=== PATIENT | female | born 1990 | race Caucasian/White ===

== ENCOUNTER → 2016-10-08 | Outpatient (CLI) | payer OTHER ==
[~2016-10-08] MED LIST: /PANT40TA OR; ACET65TA; AMBI10TA PO; BACT800T; CARB20TAXR PO; CIPR500T19 OR; CLON0.5T PO; COLA100C PO; COLA100C2 OR; DEPO SHOT; ESCI10TA2 PO; FERROUS SULFATE PO; FLAG500T OR; GEOD60CA PO; HYDROXYZINE PO; IBUP600T OR; KLON0.5T PO; KLON1TAB PO; MIRT45TA OR; MOTR200T4; NYST100024 TOP; PERC5TAB8 OR; PERC7.5T8 OR; SENO8.6T5 OR; SERO50TA PO; XANA0.5T PO; ZOLO100T OR; vitamin B12 SQ
[2016-10-08 16:38] LABS: MEAN CORPUSCULAR HEMOGLOBIN 20.7 pg (27.0-33.0); MEAN CORPUSCULAR HGB CONC 28.7 g/dl (32.0-36.5); MEAN CORPUSCULAR VOLUME 72.1 fl (80.0-96.0); RED CELL DISTRIBUTION WIDTH 16.2 % (11.5-14.5); WHITE BLOOD COUNT 9.6 K/mm3 (4.0-10.0)
[2016-10-08 18:11] LABS: ANION GAP 8 MEQ/L (8-16); BLOOD UREA NITROGEN 9 MG/DL (7-18); CALCIUM LEVEL 8.2 MG/DL (8.5-10.1); CARBON DIOXIDE LEVEL 28 MEQ/L (21-32); CHLORIDE LEVEL 104 MEQ/L (98-107); CREATININE FOR GFR 0.79 MG/DL (0.55-1.02); GLOMERULAR FILTRATION RATE > 60.0 (>60); GLUCOSE, FASTING 79 MG/DL (70-105); POTASSIUM SERUM 4.7 MEQ/L (3.5-5.1); SODIUM LEVEL 140 MEQ/L (136-145)
== END ==
LOC: M WUC 13:24
PROVIDERS: ATTEND Plastic Surgery
DX: Z98.84 Bariatric surgery status (principal)

== ENCOUNTER 2017-01-03 12:05 | Emergency (ER) | payer OTHER ==
[~2017-01-03] VITALS: Ht 177.8 cm; Wt 92.3 kg
[~2017-01-03 12:05] MED LIST changes: -COLA100C PO; +COLA100C3 PO
[2017-01-03] MEDS ORDERED: TYLE325T5 PO (12:21)
[2017-01-03] MEDS ORDERED: BENA25TA9 PO (12:21)
[2017-01-03] MEDS ORDERED: ONDANSETRON 4MG/2ML VIAL (J2405) IV ONE (12:30)
[2017-01-03] MEDS ORDERED: NS 1,000 ML IV ONE (12:30)
[2017-01-03] MEDS: MORPHINE 2 MG/ML 1ML SYRINGE IV PRN ×4 (12:45→14:58)
[2017-01-03 13:35] LABS: ALBUMIN 3.5 GM/DL (3.2-5.2); ALKALINE PHOSPHATASE 102 U/L (45-117); ALT/SGPT 12 U/L (12-78); AMYLASE 35 U/L (25-115); ANION GAP 7 MEQ/L (8-16); AST/SGOT 10 U/L (15-37); BILIRUBIN,DIRECT < 0.1 MG/DL (0.0-0.2); BILIRUBIN,TOTAL 0.3 MG/DL (0.2-1.0); BLOOD UREA NITROGEN 6 MG/DL (7-18); CALCIUM LEVEL 8.1 MG/DL (8.5-10.1); CARBON DIOXIDE LEVEL 25 MEQ/L (21-32); CHLORIDE LEVEL 106 MEQ/L (98-107); CREATININE FOR GFR 0.76 MG/DL (0.55-1.02); GLOMERULAR FILTRATION RATE > 60.0 (>60); GLUCOSE, FASTING 85 MG/DL (70-105); POTASSIUM SERUM 3.3 MEQ/L (3.5-5.1); SODIUM LEVEL 138 MEQ/L (136-145); TOTAL PROTEIN 7.4 GM/DL (6.4-8.2)
[2017-01-03 13:39] LABS: BASO # 0.1 K/mm3 (0.0-0.2); BASO % 0.8 % (0.0-1.0); EOS # 0.1 K/mm3 (0.0-0.50); LARGE UNSTAINED CELL # 0.2 K/mm3 (0.0-0.4); LARGE UNSTAINED CELL % 2.7 % (0.0-4.0); LYMPH # 2.9 K/mm3 (1.5-6.5); MEAN CORPUSCULAR HEMOGLOBIN 19.8 pg (27.0-33.0); MEAN CORPUSCULAR HGB CONC 28.4 g/dl (32.0-36.5); MEAN CORPUSCULAR VOLUME 69.8 fl (80.0-96.0); MONO # 0.6 K/mm3 (0.0-0.8); MONO % 7.5 % (0.0-5.0); NEUTROPHILS # 4.3 K/mm3 (1.8-7.7); PLATELET COUNT, AUTOMATED 547 k/mm3 (150-450); RED CELL DISTRIBUTION WIDTH 16.1 % (11.5-14.5); WHITE BLOOD COUNT 7.9 K/mm3 (4.0-10.0)
[2017-01-03 13:45] LABS: MICROSCOPIC INDICATED? MAN YES (NO)
[2017-01-03 13:50] LABS: ADD MORPHOLOGY? YES
[2017-01-03 13:53] LABS: BACTERIA, URINE MOD AMOUNT; MICROSCOPIC EXAM PERFORMED; SQUAMOUS EPITHELIAL CELL URINE MOD AMOUNT /hpf (SMALL AMT)
[2017-01-03 14:55] LABS: ANISOCYTOSIS 1+; HYPOCHROMASIA 2+; MICROCYTOSIS 3+; OVALOCYTES 1+
[2017-01-03] MEDS ORDERED: CLINDAMYCIN 900 MG in APPROPRIATE DILUENT 1 EA IV ONE (16:15)
[2017-01-03] MEDS ORDERED: methylPREDNISolone INJ 125 MG/2 ML VIAL (J2930) IV ONE (16:15)
[2017-01-03 17:43] VITALS: BP 115/67
[2017-01-03] MEDS ORDERED: BACT800T5 PO (17:50)
[2017-01-03] MEDS ORDERED: MYCO15CR TOP (17:50)
[2017-01-03] MEDS ORDERED: METR0.7533 PV (17:55)
== END 2017-01-03 18:06 | disposition home or self-care (01) ==
LOC: M ED 12:58
DX: N76.0 Acute vaginitis (principal); N39.0 Urinary tract infection, site not specified; F17.200 Nicotine dependence, unspecified, uncomplicated; B95.62 Methicillin resistant Staphylococcus aureus infection as the cause of diseases classified elsewhere; Z87.442 Personal history of urinary calculi; Z98.84 Bariatric surgery status
CPT/HCPCS: 36415; 51701; 80048; 80076; 81000; 81025; 82150; 83605; 83690; 85025; 87088; 87186; 87210; 87255; 87491; 87591; 96365; 96375; 99284; J2405; J2930

== ENCOUNTER → 2017-03-04 | Outpatient (CLI) | payer OTHER ==
[~2017-03-04] MED LIST changes: +BACT800T5 PO; +BENA25TA10 PO; -COLA100C3 PO; +COLA100C5 PO; +METR0.7533 PV; +MYCO15CR TOP; -NYST100024 TOP; +NYST1POW9 TOP; +TYLE325T5 PO
== END ==
LOC: M WUC 16:03
PROVIDERS: ATTEND Advanced Practice Midwife
DX: Z11.3 Encounter for screening for infections with a predominantly sexual mode of transmission (principal)

== ENCOUNTER → 2017-03-04 | Outpatient (REF) | payer OTHER | LOC: M LAB REF 17:21 | PROVIDERS: ATTEND Advanced Practice Midwife | DX: Z12.4 Encounter for screening for malignant neoplasm of cervix (principal); R87.610 Atypical squamous cells of undetermined significance on cytologic smear of cervix (ASC-US) ==

== ENCOUNTER 2019-04-30 04:38 | Emergency (ER) | payer OTHER, MEDICAID ==
[~2019-04-30] VITALS: Ht 177.8 cm; Wt 77.3 kg
[~2019-04-30 04:38] MED LIST changes: -/PANT40TA OR; -CLON0.5T PO; +CLON0.5T8 PO; +PROT1TAB2 OR
[2019-04-30] MEDS ORDERED: TETANUS/DIPHTHERIA TOX ADSORB ADULT 0.5ML SYR/VIAL (90714) IM ONE (06:45)
[2019-04-30 07:28] VITALS: BP 130/97
--- NOTE | 2019-04-30 09:49 | REP ---
Left hand series: Four views. History: Injury. Thumb symptoms. Findings: Four views of the left hand demonstrate normal bones, joints and soft tissues. No fracture or subluxation is seen. Impression: Negative radiographs of the left hand. Electronically Signed by Tremaine Martínez MD 04/30/2019 11:23 A
== END 2019-04-30 07:31 | disposition home or self-care (01) ==
LOC: M ED 04:38
DX: S69.92XA Unspecified injury of left wrist, hand and finger(s), initial encounter (principal); S41.051A Open bite of right shoulder, initial encounter; Y04.1XXA Assault by human bite, initial encounter; Y04.8XXA Assault by other bodily force, initial encounter; Y07.59 Other non-family member, perpetrator of maltreatment and neglect; Y92.238 Other place in hospital as the place of occurrence of the external cause; Y93.89 Activity, other specified; Y99.0 Civilian activity done for income or pay; Z88.5 Allergy status to narcotic agent

== ENCOUNTER 2019-07-19 14:12 | Inpatient (IN) | payer MEDICAID, OTHER ==
[~2019-07-19] VITALS: Ht 180.3 cm; Wt 82.0 kg
[~2019-07-19 14:12] MED LIST changes: +CLON0.5T2 PO; -CLON0.5T8 PO
[2019-07-19] MEDS ORDERED: diphenhydrAMINE INJ 50MG/ML VIAL (J1200) IV STA (15:34)
[2019-07-19] MEDS ORDERED: MORPHINE 4 MG/ML 1ML VIAL/SYRINGE (J2270) IV ONE ×2 (15:45→18:00)
[2019-07-19] MEDS ORDERED: NS 1,000 ML IV ONE (15:45)
[2019-07-19] MEDS ORDERED: METOCLOPRAMIDE INJ 10MG/2ML VIAL (J2765) IV ONE (15:45)
[2019-07-19 16:02] LABS: BASO # 0.1 10^3/uL (0.0-0.2); EOS # 0.2 10^3/uL (0.0-0.5); EOS % 1.9 % (0.0-3.0); HEMATOCRIT 26.6 % (36.0-47.0); LYMPH # 3.2 10^3/uL (1.5-5.0); LYMPH % 32.3 % (24.0-44.0); MEAN CORPUSCULAR HGB CONC 25.6 g/dl (32.0-36.5); MEAN CORPUSCULAR VOLUME 66.3 fl (80.0-96.0); MONO # 0.7 10^3/uL (0.0-0.8); NEUTROPHILS # 5.6 10^3/uL (1.5-8.5); NEUTROPHILS % 57.5 % (36.0-66.0); PLATELET COUNT, AUTOMATED 426 10^3/uL (150-450); RED BLOOD COUNT 4.01 10^6/uL (4.00-5.40); WHITE BLOOD COUNT 9.8 10^3/uL (4.0-10.0)
[2019-07-19 16:06] LABS: HEMOGLOBIN 6.8 g/dl (12.0-15.5)
[2019-07-19 16:26] LABS: HCG, SERUM QUALITATIVE NEGATIVE (NEGATIVE)
[2019-07-19 16:31] LABS: ALBUMIN 3.4 GM/DL (3.2-5.2); ALT/SGPT 13 U/L (12-78); BILIRUBIN,DIRECT 0.1 MG/DL (0.0-0.2); BILIRUBIN,TOTAL 0.2 MG/DL (0.2-1.0); BLOOD UREA NITROGEN 12 MG/DL (7-18); CALCIUM LEVEL 7.7 MG/DL (8.5-10.1); CARBON DIOXIDE LEVEL 24 MEQ/L (21-32); CHLORIDE LEVEL 108 MEQ/L (98-107); CREATININE FOR GFR 0.65 MG/DL (0.55-1.30); GLOMERULAR FILTRATION RATE > 60.0 (>60); GLUCOSE, FASTING 84 MG/DL (70-100); LIPASE 134 U/L (73-393); POTASSIUM SERUM 4.2 MEQ/L (3.5-5.1); SODIUM LEVEL 139 MEQ/L (136-145); TOTAL PROTEIN 6.6 GM/DL (6.4-8.2)
[2019-07-19] MEDS ORDERED: ISOVUE-370 76% 100ML VIAL (Q9967) As Ordered ONE (17:12)
[2019-07-19 19:38] LABS: FERRITIN 3 NG/ML (8-252); IRON (FE) 9 UG/DL (50-170); PERCENT SATURATION 2.2 % (13.2-45.0); TOTAL IRON BINDING CAPACITY 410 UG/DL (250-450)
[2019-07-19 19:46] LABS: VITAMIN B12 LEVEL 143 PG/ML (247-911)
[2019-07-19 20:04] LABS: INFLUENZA A AMPLIFICATION NEGATIVE (NEGATIVE); INFLUENZA B AMPLIFICATION NEGATIVE (NEGATIVE)
[2019-07-19] MEDS ORDERED: CYANOCOBALAMIN 1,000 MCG/ML VIAL (J3420) IM SCH (21:00)
[2019-07-19] MEDS ORDERED: IRON SUCROSE 100MG 5ML VIAL (J1756 PER 1MG) IV ONE (21:45)
[2019-07-19 22:30] VITALS: BP 121/77
[2019-07-19] MEDS ORDERED: METOCLOPRAMIDE 5 MG TAB PO PRN (22:45)
[2019-07-19] MEDS ORDERED: diphenhydrAMINE 25 MG CAP PO PRN (22:45)
[2019-07-19] MEDS ORDERED: IRON SUCROSE 100 MG in NS 100 ML OVER 1 HR IV ONE (23:00)
[2019-07-19 23:20] VITALS: BP 100/52
[2019-07-19] MEDS: NS 1,000 ML IV SCH (23:30)
[2019-07-19] MEDS: ACETAMINOPHEN TAB 650MG DOSE (2X325MG) PO PRN (23:31)
[2019-07-19 23:45] VITALS: BP 99/53
[2019-07-20] VITALS (11 sets, daily range): BP systolic 101–126; BP diastolic 54–82
--- NOTE | 2019-07-20 01:28 | HPEPDOC ---
[facility] Medical History & Physical Date of Admission Jul 19, 2019 Date of Service: Jul 19, 2019 Attending Physician: LANRE SILVERMAN MD History and Physical CHIEF COMPLAINT: Abdominal pain, nausea, diarrhea, lightheadedness HISTORY OF PRESENT ILLNESS: 28-year-old female with a history of gastric bypass surgery in 2009 presents to the emergency room with worsening abdominal pain, nausea, vomiting, and diarrhea. She states this started about 5 or 6 days ago and she thought she was just covering from a stomach bug. She states she has been around other people. We'll also have the stomach bug. However, her symptoms continued to get worse and not better. She states she has having a hard time keeping down fluids or saltine crackers. She states she has been very nauseous and vomiting up bile. She also reports watery stools. She denies any blood in her vomit or stools. She also complains of subjective fevers and chills at home. The patient also reports feeling fatigue and generalized weakness. She states has been going on for months. She states she has a history of anemia and he is to take oral iron supplementation but has not been taking it recently because it never really worked. She denies ever having iron transfusions. She also reports having B12 injections in the past which she has not done. She states she does not currently follow with a primary care physician. PAST MEDICAL HISTORY: 1. Cholelithiasis 2. Nephrolithiasis 3. Depression/anxiety PAST SURGICAL HISTORY: 1. Gastric bypass 2009 2. Cholecystectomy 2010 3. Cystoscopy for kidney stone 4. 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 ALLERGIES: Please see below. REVIEW OF SYSTEMS: CONSTITUTIONAL: Endorses fatigue, subjective fevers and chills. Denies night sweats, unexpected change in weight. HEENT: Denies change in vision, change in hearing. CARDIOVASCULAR: Endorses lightheadedness. Denies chest pain, palpitations, shortness of breath. RESPIRATORY: Denies dyspnea, cough, wheezing, coughing up blood. GASTROINTESTINAL: Endorses nausea, vomiting, abdominal pain, and diarrhea. Denies constipation, blood in stool, blood in vomit. GENITOURINARY: Denies dysuria, urinary frequency, urinary urgency, blood in urine. SKIN: Denies rash, lesions on skin. MUSCULOSKELETAL: Endorses generalized joint pain. NEUROLOGICAL: Endorses generalized weakness, dizziness, and numbness in bilateral feet. Denies headache. PSYCHIATRIC: Denies recent change in mood or unstable mood. HOME MEDICATIONS: Please see below. PHYSICAL EXAMINATION: VITAL SIGNS: See below GENERAL: Alert, comfortable, in no acute distress HEENT: Normocephalic, atraumatic, PERRLA, EOMI, moist mucous membranes NECK: Supple, trachea midline, no lymphadenopathy, no JVD CARDIOVASCULAR: Regular rate and rhythm, normal S1 and S2. No murmurs, rubs, or gallops RESPIRATORY: Clear to auscultation bilaterally with equal air entry bilaterally. No wheezing, rhonchi, or rales. ABDOMEN: Mildly tender throughout to deep palpation with moderate tenderness to light palpation of the RLQ. Soft, nondistended, bowel sounds present. Surgical scars appear well healed from skin removal surgery. EXTREMITIES: No cyanosis or edema. Pulses 2+/4 in bilateral upper and lower extremities. Capillary refill less than 2 seconds SKIN: [place], warm, dry NEUROLOGIC: Alert and oriented 3 to person, place and time. Cranial nerves 2-12 grossly intact. No focal deficits appreciated PSYCHIATRIC: Mood and affect appropriate LABORATORY DATA: See below. IMAGING: CT Abdomen/pelvis, official radiology report pending MICROBIOLOGY: Please see below. ASSESSMENT/PLAN: 28-year-old female with a history of gastric bypass surgery presents with likely viral gastroenteritis and chronic anemia secondary to iron and B12 deficiencies. 1. Symptomatic anemia likely 2/2 iron and B12 deficiency considering hx of gastric bypass - Hg low at 6.8, will transfuse 1 unit PRBCs, recheck H/H and continue to transfuse as indicated - iron panel positive for iron deficiency, ordered IV iron transfusion daily - low B12 level, ordered IM B12 injections q48 hr - No clear source of blood loss, stool guaiac negative. 2. Abdominal pain likely 2/2 viral gastroenteritis - CT abdomen/pelvis pending official report but no clear sign of appendicitis - GI panel pending - supportive management, clear liquid diet to be advanced as tolerated, reglan for nausea, tylenol for pain - also endorses generalized joint pains, ordered parvovirus B19 PCR 3. Asthma - stable, no evidence of acute exacerbation 4. Continuity of care - Pt does not have a PCP, will need to establish care on discharge DVT Prophylaxis: Teds and SCDs DISPOSITION: inpatient pending clinical improvement and stabilization of H/H Attending Addendum: I performed a history & physical exam of the patient and discussed management with the resident. I reviewed the resident's note and agree with the documented findings and plan of care. Vital Signs Vital Signs Date Time Temp Pulse Resp B/P (MAP) Pulse Ox O2 Delivery O2 Flow Rate FiO2 07/19/19 23:45 97.6 86 18 99/53 98 Room Air Laboratory Data Labs 24H Laboratory Tests 2 07/19/19 15:39: Immature Granulocyte % (Auto) 0.3, Neutrophils (%) (Auto) 57.5, Lymphocytes (%) (Auto) 32.3, Monocytes (%) (Auto) 7.0H, Eosinophils (%) (Auto) 1.9, Basophils (%) (Auto) 1.0, Neutrophils # (Auto) 5.6, Lymphocytes # (Auto) 3.2, Monocytes # (Auto) 0.7, Eosinophils # (Auto) 0.2, Basophils # (Auto) 0.1, Nucleated Red Blood Cells % (auto) 0.0, Urine Color MURPHY, Urine Appearance CLOUDYH, Urine pH 5.0, Urine Specific [place] 1.031, Urine Protein 1+H, Urine Glucose (UA) N EGATIVE, Urine Ketones TRACEH, Urine Blood NEGATIVE, Urine Nitrite NEGATIVE, Urine Bilirubin NEGATIVE, Urine Urobilinogen 2.0H, Urine Leukocyte Esterase 2+H, Urine WBC (Auto) 20H, Urine RBC (Auto) 6H, Urine Hyaline Casts (Auto) 0, Urine Bacteria (Auto) 2+H, Urine Squamous Epithelial Cells 9, Urine Mucus (Auto) LARGE, Urine Sperm (Auto) , Anion Gap 7L, Glomerular Filtration Rate > 60.0, Calcium Level 7.7L, Iron Level 9L, Total Iron Binding Capacity 410, Transferrin % Saturation 2.2L, Ferritin 3L, Total Bilirubin 0.2, Direct Bilirubin 0.1, Aspartate Amino Transf (AST/SGOT) 14, Alanine Aminotransferase (ALT/SGPT) 13, Alkaline Phosphatase 72, Total Protein 6.6, Albumin 3.4, Albumin/Globulin Ratio 1.06, Lipase 134, Vitamin B12 Level 143L, Human Chorionic Gonadotropin, Qual NEGATIVE 07/19/19 19:22: Influenza Type A (RT-PCR) NEGATIVE, Influenza Type B (RT-PCR) NEGATIVE CBC/BMP Laboratory Tests 07/19/19 15:39 Microbiology Microbiology 07/19/19 Urine Culture, Received Pending Home Medications Scheduled Iron Polysaccharide Complex (Ferrex 150) 150 Mg Capsule, 150 MG PO DAILY Ondansetron HCl (Zofran) 4 Mg Tablet, 1 TAB PO Q6H Scheduled PRN Acetaminophen (Acetaminophen) 325 Mg Tablet, 650 MG PO Q4H PRN for PAIN OR FEVER Allergies Coded Allergies: morphine (Verified Allergy, Intermediate, itching, 04/30/19) A-FIB/CHADSVASC A-FIB History Current/History of A-Fib/PAF?: No MICHAELA WADE D.O. Jul 20, 2019 01:28 LANRE SILVERMAN MD Jul 22, 2019 08:07
[2019-07-20 02:32] LABS: HEMATOCRIT 25.8 % (36.0-47.0); MEAN CORPUSCULAR HEMOGLOBIN 18.5 pg (27.0-33.0); MEAN CORPUSCULAR HGB CONC 26.7 g/dl (32.0-36.5); MEAN CORPUSCULAR VOLUME 69.4 fl (80.0-96.0); RED BLOOD COUNT 3.72 10^6/uL (4.00-5.40)
[2019-07-20] MEDS ORDERED: PERCOCET 5MG/325MG TAB PO PRN (03:00)
[2019-07-20 03:09] LABS: HEMOGLOBIN 6.9 g/dl (12.0-15.5); PLATELET COUNT, AUTOMATED 313 10^3/uL (150-450)
[2019-07-20] MEDS ORDERED: PERCOCET 5MG/325MG TAB PO ONE (04:30)
--- NOTE | 2019-07-20 07:34 | REP ---
Clinical: Right lower quadrant pain. Technique: Axial contrast enhanced images from the lung bases to the pubic symphysis in oozing 100 ml Isovue 370 intravenous contrast material with coronal and sagittal re-formations. Comparison: 06/22/2016. Findings: Lung bases are clear. Visualized heart and pericardium normal. Mild hepatic steatosis is suggested without focal hepatic lesion. Spleen, pancreas, bilateral adrenal glands and right kidney are normal. Left kidney includes stable 1.7 cm angiomyolipoma. Evidence of prior cholecystectomy. Evidence for prior gastric bypass surgery. The enteric system is without obstruction or acute inflammatory process. Normal terminal ileum, cecum and appendix identified in the right lower quadrant. Pelvis demonstrates normal bladder and age-appropriate uterus/adnexa. No pelvic fluid or ascites. No free air. No adenopathy. Abdominal aorta and vasculature appear normal. Musculoskeletal structures are intact. Impression: 1. No acute abdominopelvic pathology appreciated. 2. Normal appendix, pelvic and right lower quadrant structures. 3. Stable left renal angiomyolipoma. 4. Mild hepatic steatosis. Electronically Signed by Zeus Cabezas MD 07/20/2019 07:26 A
[2019-07-20] MEDS: ACETAMINOPHEN TAB 650MG DOSE (2X325MG) PO PRN (07:43)
[2019-07-20 08:44] LABS: BASO # 0.1 10^3/uL (0.0-0.2); BASO % 1.1 % (0.0-1.0); EOS # 0.1 10^3/uL (0.0-0.5); HEMATOCRIT 29.5 % (36.0-47.0); LYMPH # 1.8 10^3/uL (1.5-5.0); MEAN CORPUSCULAR HEMOGLOBIN 19.5 pg (27.0-33.0); MEAN CORPUSCULAR HGB CONC 27.1 g/dl (32.0-36.5); MEAN CORPUSCULAR VOLUME 71.8 fl (80.0-96.0); MONO # 0.5 10^3/uL (0.0-0.8); MONO % 7.1 % (0.0-5.0); NEUTROPHILS # 4.1 10^3/uL (1.5-8.5); NEUTROPHILS % 62.5 % (36.0-66.0); PLATELET COUNT, AUTOMATED 353 10^3/uL (150-450); RED BLOOD COUNT 4.11 10^6/uL (4.00-5.40); WHITE BLOOD COUNT 6.5 10^3/uL (4.0-10.0)
[2019-07-20] MEDS ORDERED: IRON SUCROSE 100MG 5ML VIAL (J1756 PER 1MG) IV SCH (09:00)
[2019-07-20 09:07] LABS: MAGNESIUM LEVEL 1.8 MG/DL (1.8-2.4); PHOSPHORUS LEVEL 3.1 MG/DL (2.5-4.9)
[2019-07-20] MEDS: NS 1,000 ML IV SCH ×2 (10:55→23:37)
[2019-07-20] MEDS: IRON SUCROSE 100 MG in NS 100 ML OVER 1 HR IV SCH (10:55)
[2019-07-20] MEDS: KETOROLAC 30 MG/ML VIAL (J1885) IV SCH ×3 (10:56→23:37)
--- NOTE | 2019-07-20 12:27 | IPNPDOC ---
Text Note Date of Service The patient was seen on 07/20/19. NOTE Subjective: Patient complains of headache. She stated that her nausea and ab dominal pain subsided GENERAL: Pale female HEENT: Normocephalic, atraumatic, PERRLA, EOMI NECK: PERRLA, EOMI, no JVD CARDIOVASCULAR: Regular rate and rhythm, normal S1 and S2. No murmurs, rubs, or gallops RESPIRATORY: Clear to auscultation bilaterally with equal air entry bilaterally. No wheezing, rhonchi, or rales. ABDOMEN: Nontender, nondistended, no rigidity EXTREMITIES: No cyanosis or edema. NEUROLOGIC: Alert and oriented 3 to person, place and time. Cranial nerves 2-12 grossly intact. No focal deficits appreciated PSYCHIATRIC: Mood and affect appropriate ASSESSMENT/PLAN: 28-year-old female with a history of gastric bypass surgery presents with likely viral gastroenteritis and chronic anemia secondary to iron and B12 deficiencies. 1. Symptomatic anemia likely 2/2 iron and B12 deficiency 2/2 hx of gastric bypass Patient received 1 unit of blood transfusion, hemoglobin improved Continue to monitor H&H IM B12 injections q48 hr stool guaiac negative. continue iron IV 2. Abdominal pain likely 2/2 viral gastroenteritis - CT abdomen/pelvis no acute abdominopelvic pathology appreciated. - GI panel pending - supportive management 3. Asthma - stable, no evidence of acute exacerbation 4. Continuity of care - Pt does not have a PCP, will need to establish care on discharge 5. Headache - Most likely tension Pain management VS,Fishbone, I+O VS, Fishbone, I+O Laboratory Tests 07/19/19 15:39 07/20/19 02:25 07/20/19 08:30 Vital Signs Date Time Temp Pulse Resp B/P (MAP) Pulse Ox O2 Delivery O2 Flow Rate FiO2 07/20/19 06:45 97.2 77 18 116/72 99 Room Air I&O- Last 24 Hours up to 6 AM 07/20/19 05:59 Intake Total 2620 ml Output Total 400 ml Balance 2220 ml YVON CARRERA DO Jul 20, 2019 12:27
[2019-07-20 14:11] LABS: HEMATOCRIT 27.3 % (36.0-47.0); HEMOGLOBIN 7.6 g/dl (12.0-15.5)
[2019-07-20 20:11] LABS: HEMATOCRIT 26.9 % (36.0-47.0); HEMOGLOBIN 7.5 g/dl (12.0-15.5)
[2019-07-21 02:11] LABS: HEMATOCRIT 28.4 % (36.0-47.0); HEMOGLOBIN 7.7 g/dl (12.0-15.5)
[2019-07-21] MEDS: KETOROLAC 30 MG/ML VIAL (J1885) IV SCH ×2 (05:38→10:48)
[2019-07-21 06:31] VITALS: BP 134/81
[2019-07-21 07:20] LABS: HEMATOCRIT 29.4 % (36.0-47.0); HEMOGLOBIN 7.9 g/dl (12.0-15.5); MEAN CORPUSCULAR HEMOGLOBIN 19.1 pg (27.0-33.0); MEAN CORPUSCULAR HGB CONC 26.9 g/dl (32.0-36.5); PLATELET COUNT, AUTOMATED 315 10^3/uL (150-450); RED BLOOD COUNT 4.14 10^6/uL (4.00-5.40); WHITE BLOOD COUNT 6.8 10^3/uL (4.0-10.0)
[2019-07-21 07:48] LABS: BLOOD UREA NITROGEN 9 MG/DL (7-18); CALCIUM LEVEL 7.6 MG/DL (8.5-10.1); CARBON DIOXIDE LEVEL 22 MEQ/L (21-32); CHLORIDE LEVEL 113 MEQ/L (98-107); CREATININE FOR GFR 0.51 MG/DL (0.55-1.30); GLOMERULAR FILTRATION RATE > 60.0 (>60); GLUCOSE, FASTING 104 MG/DL (70-100); POTASSIUM SERUM 3.6 MEQ/L (3.5-5.1); SODIUM LEVEL 142 MEQ/L (136-145)
[2019-07-21] MEDS: ACETAMINOPHEN TAB 650MG DOSE (2X325MG) PO PRN (09:05)
[2019-07-21] MEDS: IRON SUCROSE 100 MG in NS 100 ML OVER 1 HR IV SCH (09:05)
[2019-07-21 11:10] VITALS: BP 132/83
[2019-07-21 11:26] VITALS: BP 118/67
[2019-07-21 12:31] VITALS: BP 130/65
[2019-07-21] MEDS ORDERED: FERR150C PO (12:42)
--- NOTE | 2019-07-21 12:53 | DS.PDOC ---
Discharge Summary General Date of Admission Jul 19, 2019 at 21:38 Date of Discharge 07.21.2019 Discharge Summary PROCEDURES PERFORMED DURING STAY: [None]. ADMITTING DIAGNOSES: Symptomatic anemia likely 2/2 iron and B12 deficiency Abdominal pain likely 2/2 viral gastroenteritis Asthma Continuity of care Headache DISCHARGE DIAGNOSES: Symptomatic anemia likely 2/2 iron and B12 deficiency Abdominal pain likely 2/2 viral gastroenteritis Asthma Continuity of care Headache COMPLICATIONS/CHIEF COMPLAINT: H/O Gastric Bypass,Iron Deficiency Anemia,Severe. HISTORY OF PRESENT ILLNESS: 28-year-old female with a history of gastric bypass surgery in 2009 presents to the emergency room with worsening abdominal pain, nausea, vomiting, and diarrhea. She states this started about 5 or 6 days ago and she thought she was just covering from a stomach bug. She states she has been around other people. We'll also have the stomach bug. However, her symptoms continued to get worse and not better. She states she has having a hard time keeping down fluids or saltine crackers. She states she has been very nauseous and vomiting up bile. She also reports watery stools. She denies any blood in her vomit or stools. She also complains of subjective fevers and chills at home. The patient also reports feeling fatigue and generalized weakness. She states has been going on for months. She states she has a history of anemia and he is to take oral iron supplementation but has not been taking it recently because it never really worked. She denies ever having iron transfusions. She also reports having B12 injections in the past which she has not done. She states she does not currently follow with a primary care physician. HOSPITAL COURSE: During hospital stay the following issue addressed 1. Symptomatic anemia likely 2/2 iron and B12 deficiency 2/2 hx of gastric bypass, most likely patient will need B12 intramuscular injection and IV iron lifelong. Patient received 2 unit of blood transfusion, hemoglobin improved IM B12 injections q48 hr stool guaiac negative. iron IV Patient will be discharged on IV iron and B12 intramuscular for the next 4 days 2. Abdominal pain likely 2/2 viral gastroenteritis - CT abdomen/pelvis no acute abdominopelvic pathology appreciated. - supportive management 3. Asthma - stable, no evidence of acute exacerbation 4. Continuity of care - Pt does not have a PCP, will need to establish care on discharge 5. Headache - Most likely tension Pain management DISCHARGE MEDICATIONS: Please see below. ALLERGIES: Please see below. PHYSICAL EXAMINATION ON DISCHARGE: VITAL SIGNS: Please see below. GENERAL: Pale female HEENT: Normocephalic, atraumatic, PERRLA, EOMI NECK: PERRLA, EOMI, no JVD CARDIOVASCULAR: Regular rate and rhythm, normal S1 and S2. No murmurs, rubs, or gallops RESPIRATORY: Clear to auscultation bilaterally with equal air entry bilaterally. No wheezing, rhonchi, or rales. ABDOMEN: Nontender, nondistended, no rigidity EXTREMITIES: No cyanosis or edema. NEUROLOGIC: Alert and oriented 3 to person, place and time. Cranial nerves 2-12 grossly intact. No focal deficits appreciated PSYCHIATRIC: Mood and affect appropriate LABORATORY DATA: Please see below. IMAGING: Negative for acute abdominal pathology PROGNOSIS: Favorable ACTIVITY: As tolerated DIET: Regular DISCHARGE PLAN: Home DISPOSITION: . Home DISCHARGE INSTRUCTIONS: Patient will need to see plate embosser in 3 days, and PCP ITEMS TO FOLLOWUP ON ON OUTPATIENT: Continue IV iron and intramuscular injection of B12 for the next 4 days DISCHARGE CONDITION: Stable TIME SPENT ON DISCHARGE: Greater than 10 minutes. Vital Signs/I&Os Vital Signs Date Time Temp Pulse Resp B/P (MAP) Pulse Ox O2 Delivery O2 Flow Rate FiO2 07/21/19 12:31 99.4 105 18 130/65 98 Room Air I&O- Last 24 Hours up to 6 AM 07/21/19 06:00 Intake Total 3600 ml Output Total 1400 ml Balance 2200 ml Laboratory Data Labs 24H Laboratory Tests 2 07/21/19 06:48: Nucleated Red Blood Cells % (auto) 0.0, Anion Gap 7L, Glomerular Filtration Rate > 60.0, Calcium Level 7.6L CBC/BMP Laboratory Tests 07/20/19 13:37 07/20/19 20:01 07/21/19 02:06 07/21/19 06:48 Microbiology Microbiology 07/19/19 Urine Culture - Final, Complete Discharge Medications Scheduled Iron Polysaccharide Complex (Ferrex 150) 150 Mg Capsule, 150 MG PO DAILY Allergies Coded Allergies: morphine (Verified Allergy, Intermediate, itching, 04/30/19) YVON CARRERA DO Jul 21, 2019 12:53
[2019-07-21] MEDS ORDERED: ACET1TAB55 PO (12:57)
[2019-07-21] MEDS ORDERED: ZOFR4TAB16 PO (12:57)
[2019-07-21 13:30] LABS: HEMATOCRIT 34.2 % (36.0-47.0); HEMOGLOBIN 9.6 g/dl (12.0-15.5)
[2019-07-21 13:33] VITALS: BP 134/92
[2019-07-24 00:08] LABS: PARVOVIRUS B19 QUANT PCR Negative copies/mL (Negative)
== END 2019-07-21 14:15 | disposition home or self-care (01) | DRG 421 ==
LOC: M ED 14:12 → M ED INP 21:38 → M MS5PR 22:14
PROVIDERS: ADMIT Internal Medicine; ATTEND Internal Medicine
PROC: 30233N1 Transfusion of Nonautologous Red Blood Cells into Peripheral Vein, Percutaneous Approach (ICD-10-PCS; principal; 2019-07-19)
DX: E53.8 Deficiency of other specified B group vitamins (principal); A08.4 Viral intestinal infection, unspecified; D50.9 Iron deficiency anemia, unspecified; J45.909 Unspecified asthma, uncomplicated; R51 Headache; Z88.5 Allergy status to narcotic agent

== ENCOUNTER → 2019-08-06 | Outpatient (REF) | payer OTHER ==
[~2019-08-06] MED LIST changes: +ACET1TAB55 PO; +FERR150C PO; +ZOFR4TAB16 PO
[2019-08-06 14:04] LABS: HEMATOCRIT 42.2 % (36.0-47.0); MEAN CORPUSCULAR HEMOGLOBIN 22.4 pg (27.0-33.0); MEAN CORPUSCULAR HGB CONC 28.4 g/dl (32.0-36.5); MEAN CORPUSCULAR VOLUME 78.9 fl (80.0-96.0); PLATELET COUNT, AUTOMATED 652 10^3/uL (150-450); RED BLOOD COUNT 5.35 10^6/uL (4.00-5.40); WHITE BLOOD COUNT 10.6 10^3/uL (4.0-10.0)
[2019-08-06 14:20] LABS: FOLATE 5.8 NG/ML (>5.4)
== END ==
LOC: M SFHCPLAZ 10:28
PROVIDERS: ATTEND Family Medicine
DX: Z98.84 Bariatric surgery status (principal); D50.8 Other iron deficiency anemias

== ENCOUNTER → 2019-08-27 | Outpatient (CLI) | payer OTHER ==
[~2019-08-27] MED LIST changes: +ESCI5SOL3 PO; +HYDR-643 PO
[2019-08-27 17:39] LABS: PERCENT SATURATION 4.4 % (13.2-45.0)
== END ==
LOC: M PLALAB 13:23
PROVIDERS: ATTEND Obstetrics & Gynecology
DX: D50.8 Other iron deficiency anemias (principal)

== ENCOUNTER 2019-10-28 08:22 | Outpatient (CLI) | payer OTHER ==
[2019-10-28] VITALS (8 sets, daily range): BP systolic 121–162; BP diastolic 58–102
[~2019-10-28] VITALS: Ht 180.3 cm; Wt 86.3 kg
[2019-10-28] MEDS ORDERED: IRON SUCROSE 500 MG in NS 250 ML OVER 4 HRS IV ONE (08:30)
[2019-10-28] MEDS ORDERED: KETOROLAC 30 MG/ML VIAL (J1885) IV ONE (12:45)
[2019-10-28] MEDS ORDERED: SODIUM CHLORIDE 0.9% 1000ML IV SCH (13:00)
== END 2019-10-28 13:40 | disposition home or self-care (01) ==
LOC: M INFU 08:22
PROVIDERS: ATTEND Obstetrics & Gynecology
DX: D50.8 Other iron deficiency anemias (principal); Z88.5 Allergy status to narcotic agent
CPT/HCPCS: 96365; 96366; 96375; J1756; J1885

== ENCOUNTER 2019-12-12 05:02 | Day surgery (SDC) | payer OTHER ==
[~2019-12-12] VITALS: Ht 180.3 cm; Wt 107.4 kg
[2019-12-12] MEDS ORDERED: NS 1,000 ML IV ONE (05:45)
[2019-12-12 06:02] LABS: HEMATOCRIT 41.7 % (36.0-47.0); HEMOGLOBIN 13.3 g/dl (12.0-15.5); MEAN CORPUSCULAR HEMOGLOBIN 28.6 pg (27.0-33.0); MEAN CORPUSCULAR HGB CONC 31.9 g/dl (32.0-36.5); MEAN CORPUSCULAR VOLUME 89.7 fl (80.0-96.0); PLATELET COUNT, AUTOMATED 348 10^3/uL (150-450); RED BLOOD COUNT 4.65 10^6/uL (4.00-5.40); WHITE BLOOD COUNT 10.6 10^3/uL (4.0-10.0)
[2019-12-12 06:16] LABS: HCG, SERUM QUALITATIVE NEGATIVE (NEGATIVE)
[2019-12-12] MEDS ORDERED: ACET1TAB55 PO (06:29)
[2019-12-12] MEDS ORDERED: LIDOCAINE 2% W/ EPINEPHRINE 1.7 ML DENTAL INJ As Ordered ONE (09:24)
[2019-12-12] MEDS ORDERED: MIDAZOLAM INJ 2MG/2ML VIAL (J2250 PER 1MG) As Ordered ONE (09:29)
[2019-12-12] MEDS ORDERED: OXYMETAZOLINE NASAL SPRAY (AFRIN) As Ordered ONE (09:29)
[2019-12-12] MEDS ORDERED: LIDOCAINE 2% 100MG/5ML SDV (FOR ANES.) As Ordered ONE ×2 (09:30→13:18)
[2019-12-12] MEDS ORDERED: ROCURONIUM BROMIDE 50 MG/5 ML VIAL As Ordered ONE (09:30)
[2019-12-12] MEDS ORDERED: fentaNYL 100 MCG/2 ML INJECTION (J3010) As Ordered ONE ×2 (09:30→13:59)
[2019-12-12] MEDS ORDERED: dexameTHASONE 4 MG/ML 1ML VIAL (J1100 PER 1MG) As Ordered ONE (09:30)
[2019-12-12] MEDS ORDERED: propofoL 200 MG/20 ML VIAL As Ordered ONE (09:30)
[2019-12-12] MEDS ORDERED: SUGAMMADEX SODIUM 500 MG/5 ML VIAL (BRIDION) As Ordered ONE (09:30)
[2019-12-12] MEDS ORDERED: ONDANSETRON 4MG/2ML VIAL As Ordered ONE (09:30)
[2019-12-12] MEDS ORDERED: ACETAMINOPHEN 1000MG 100ML IV BTL (OFIRMEV) (J0131 PER 10MG) As Ordered ONE (09:43)
[2019-12-12] MEDS ORDERED: ACETAMINOPHEN *IV* 1,000 MG IV ONE ×2 (09:45)
[2019-12-12] MEDS ORDERED: UNASYN 1.5 GM VIAL As Ordered ONE (12:46)
[2019-12-12] MEDS ORDERED: HYDROmorphone HCL 2 MG/ML 1ML VIAL (J1170) As Ordered ONE (12:56)
[2019-12-12] MEDS ORDERED: KETOROLAC 60 MG/2 ML VIAL As Ordered ONE (13:09)
[2019-12-12] MEDS: fentaNYL 100 MCG/2 ML INJECTION (J3010) IV PRN ×4 (14:00→14:15)
[2019-12-12] MEDS ORDERED: PERCOCET 5MG/325MG TAB PO PRN (14:15)
[2019-12-12] MEDS ORDERED: ONDANSETRON 4MG/2ML VIAL IV PRN (14:15)
[2019-12-12] MEDS ORDERED: LR 1,000 ML IV SCH (14:15)
[2019-12-12] MEDS: HYDROMORPHONE HCL 0.5 MG/ 0.5 ML SYRINGE (J1170 PER 1) IV PRN ×2 (14:20→14:30)
[2019-12-12 15:30] VITALS: BP 150/81
[2019-12-12 16:00] VITALS: BP 112/75
[2019-12-12 16:30] VITALS: BP 116/75
[2019-12-12] MEDS ORDERED: IBUP-359 PO (17:20)
[2019-12-12] MEDS ORDERED: HYDR-3713 PO (17:20)
[2019-12-12] MEDS ORDERED: AMOX500T PO (17:20)
[2019-12-12] MEDS ORDERED: PERI0.126 SSP (17:20)
--- NOTE | 2019-12-19 23:40 | RO ---
DATE OF PROCEDURE: 12/12/2019 PREOPERATIVE DIAGNOSES: Grossly carious teeth 2, 3, 12, 18, 19, 20, 21, 22, 23, 24, 25, 26, 27, 28, 29, 30, as well as vestibular abscess adjacent to teeth 18, 20, and 21. POSTOPERATIVE DIAGNOSIS: Status post the above. PROCEDURE PERFORMED: Surgical extraction of all the aforementioned teeth as well as incision and drainage of the aforementioned abscesses. SURGEON: Moe Nayak DMD, MD RN MENTAL HEALTH: ANESTHESIA USED: General endotracheal anesthesia via nasal BUTCH. SPECIMENS: Teeth for gross only. INDICATIONS FOR SURGERY: Maddy is a pleasant 29-year-old female who presented to my office on Friday, self-referred, complaining of pain and swelling in cheek as well as grossly decayed and painful teeth throughout her lower arch as well as teeth 2, 3, and 12. She reports that she has been on antibiotics over the last few days with no help. She does have a history of severe dental anxiety. I did offer the teeth to be removed that day in the office with nitrous oxide with local anesthesia; however, she declined due to her severe anxiety and she was not nothing by mouth at that time to have any office anesthesia. We performed a physical examination, which reveals multiple vestibular abscesses, including areas 18, 20, and 21, as well as terminal hopeless dentition in the lower arch and grossly decayed teeth 2, 3, and 12. I gave patient the option of staying on the antibiotics, returning to the office next week for intravenous (IV) sedation and extraction of the aforementioned teeth; however, patient developed worsening pain and swelling. She presented to the emergency room early hours of 12/12/2019. At that point, the emergency room called me. I saw the patient in the emergency room this morning. She does have mild left facial swelling, and the rest of the examination was similar to when I saw her on Friday. At this point, I gave the option to the patient to have the procedure done in the operating room setting. She was nothing by mouth at this time. Any last minute questions were addressed. A history and physical was performed. Informed consent was explained and was signed by the patient. The plan, as was agreed with the patient, is to remove teeth 2, 3, 12, 18, 19, 20, 21, 22, 23, 24, 25, 26, 27, 28, 29, and 30 under general anesthesia. DESCRIPTION OF PROCEDURE: Patient was taken back to the operating room. She was laid supine on the operating room table. Ulnar nerve protectors were placed. Noninvasive cardiac monitors were applied. At that point, the patient underwent general anesthesia with the nasal BUTCH, which was secured to the patient's forehead. She was then prepped and draped in the usual sterile fashion. A time-out procedure was performed to identify the patient, the procedure, and any other precautions. Preoperative antibiotics and steroids were administered. Moist throat pack was inserted into the patient's oropharynx followed by the administration of 10 carpules of 2% lidocaine with 1:100,000 epinephrine as local infiltrations and blocks. A #15 blade was then used to make a sulcal incision through teeth 2, 3, and 4 with a distal release. Small amount of buccal bone was removed from sites 2 and 3, and the teeth were luxated and delivered. No sinus exposure was noted. Sockets were curetted and irrigated. Flap was closed with #3-0 chromic sutures. Routine forceps extraction of tooth 12 was performed. Socket was curetted and irrigated. No sinus exposure was noted. At this point, #15 blade was then used to make a hockey-stick extension distal to tooth 18 and into the sulcus of teeth, 18, 19, 20, 21, 22, 23, 24, 25, 26, 27, 28, 29, and 30 with a distal crease incision. Flap was reflected subperiosteally in all of the aforementioned teeth areas. A small amount of buccal bone was removed from sites 18, 19, 20, 21, and 22 as well as 29 and 30. At this point, the straight elevator was then used to luxate tooth [address] to tooth 30. Once the teeth were luxated, they were delivered with forceps with ease. All the sockets were curetted and irrigated. Further subperiosteal dissection was performed at sites 18, 19, 20, 21, and 22 as well as sites 28, 29, and 30, and any necrotic and granulation tissue from the vestibular abscesses was drained and removed en toto. Alveoloplasty was performed to remove any sharp areas; and at this point, copious amount of irrigation was used to irrigate each socket and irrigate subperiosteally in each flap area. The flaps were then closed with #3-0 chromic sutures in interrupted and continuous fashion. Once all the flaps were closed, the oral cavity was irrigated and suctioned. The throat pack was removed. The patient was awakened from general anesthesia and taken back to the postanesthesia care unit (PACU) for further observation. COMPLICATIONS: None to mention at the time of surgery. ESTIMATED BLOOD LOSS: 20 mL. DRAINS: There were no drains placed.
== END 2019-12-12 17:42 | disposition home or self-care (01) ==
LOC: M ED 05:02 → M SDC 08:09 → M MSPAV 15:20 → M SDC 17:42
PROVIDERS: ATTEND Dentist
DX: K02.9 Dental caries, unspecified (principal); K04.7 Periapical abscess without sinus; D64.9 Anemia, unspecified; F32.9 Major depressive disorder, single episode, unspecified; F17.218 Nicotine dependence, cigarettes, with other nicotine-induced disorders; Z88.5 Allergy status to narcotic agent; Z98.84 Bariatric surgery status
CPT/HCPCS: 80047; 84703; 85027; 86850; 86900; 86901; 88300; 96360; 99284; D7210; D7510; D9223; J1100; J1170; J1885; J2250; J2405; J3010; U0002

== ENCOUNTER → 2020-03-12 | Outpatient (REF) ==
[~2020-03-12] MED LIST changes: +AMOX500T PO; +HYDR-3713 PO; +IBUP-359 PO; +PERI0.126 SSP
== END ==
LOC: M EMP 12:00
PROVIDERS: ATTEND Family Medicine
DX: Z20.828 Contact with and (suspected) exposure to other viral communicable diseases (principal)

== ENCOUNTER 2020-04-14 12:37 | Outpatient (RCR) | payer OTHER | END 2020-04-19 | LOC: M OT 12:37 | PROVIDERS: ATTEND Physician Assistant | DX: S53.441A Ulnar collateral ligament sprain of right elbow, initial encounter (principal); X58.XXXA Exposure to other specified factors, initial encounter; Y92.9 Unspecified place or not applicable ==

== ENCOUNTER 2024-02-01 12:12 | Emergency (ER) | payer OTHER ==
[~2024-02-01] VITALS: Ht 180.3 cm; Wt 110.4 kg
[~2024-02-01 12:12] MED LIST changes: +ESCI10TA16 PO; -ESCI10TA2 PO; -KLON0.5T PO; +KLON0.5T8 PO; -KLON1TAB PO; +KLON1TAB13 PO; +METR0.7526 PV; -METR0.7533 PV
[2024-02-01] MEDS ORDERED: PROM12.56 (12:26)
[2024-02-01] MEDS ORDERED: MACR100C43 (12:26)
[2024-02-01] MEDS ORDERED: DICY20TA3 (12:26)
[2024-02-01 14:15] LABS: BASO # 0.1 10^3/uL (0.0-0.2); BASO % 1.2 % (0.0-1.0); EOS # 0.1 10^3/uL (0.0-0.5); EOS % 0.8 % (0.0-3.0); HEMOGLOBIN 12.4 g/dl (12.0-15.5); LYMPH # 2.1 10^3/uL (1.5-5.0); LYMPH % 35.1 % (24.0-44.0); MEAN CORPUSCULAR HEMOGLOBIN 25.9 pg (27.0-33.0); MEAN CORPUSCULAR VOLUME 83.5 fl (80.0-96.0); MONO # 0.5 10^3/uL (0.0-0.8); MONO % 8.9 % (2.0-8.0); NEUTROPHILS # 3.2 10^3/uL (1.5-8.5); NEUTROPHILS % 53.8 % (36.0-66.0); PLATELET COUNT, AUTOMATED 342 10^3/uL (150-450); RED BLOOD COUNT 4.79 10^6/uL (4.00-5.40)
[2024-02-01 14:36] LABS: HCG, SERUM QUALITATIVE NEGATIVE (NEGATIVE); LIPASE 61 U/L (12-53)
[2024-02-01 14:38] LABS: ALBUMIN 3.4 G/DL (3.2-5.2); ALKALINE PHOSPHATASE 90 U/L (46-116); ALT/SGPT 26 U/L (7.0-40); AST/SGOT 15 U/L (<34); BILIRUBIN,DIRECT 0.1 MG/DL (<0.4); BILIRUBIN,TOTAL 0.3 MG/DL (0.3-1.2); BLOOD UREA NITROGEN 5 MG/DL (9-23); CALCIUM LEVEL 8.5 MG/DL (8.5-10.1); CARBON DIOXIDE LEVEL 29 MMOL/L (20-31); CHLORIDE LEVEL 108 MMOL/L (98-107); CREATININE FOR GFR 0.66 MG/DL (0.55-1.30); GLOMERULAR FILTRATION RATE > 60.0 (>60); GLUCOSE, FASTING 85 MG/DL (60-100); POTASSIUM SERUM 3.6 MMOL/L (3.5-5.1); SODIUM LEVEL 141 MMOL/L (136-145); TOTAL PROTEIN 6.3 G/DL (5.7-8.2)
[2024-02-01] MEDS: PANTOPRAZOLE 40MG VIAL IV ONE (14:56)
[2024-02-01] MEDS: ONDANSETRON 4MG 2ML VIAL IV ONE (14:56)
[2024-02-01] MEDS: MAALOX 30 ML SUSP *UDC PO ONE (15:13)
[2024-02-01 15:21] VITALS: BP 137/89; TEMP 97.8; O2SAT 100
[2024-02-01] MEDS ORDERED: CARA1TAB6 PO (15:51)
[2024-02-01] MEDS ORDERED: PROT1TAB2 PO (15:51)
== END 2024-02-01 16:05 | disposition home or self-care (01) ==
LOC: M ED 12:12
DX: K27.9 Peptic ulcer, site unspecified, unspecified as acute or chronic, without hemorrhage or perforation (principal); K29.70 Gastritis, unspecified, without bleeding; F41.9 Anxiety disorder, unspecified; F32.A Depression, unspecified; M54.50 Low back pain, unspecified; Z88.5 Allergy status to narcotic agent; Z98.84 Bariatric surgery status; Z87.442 Personal history of urinary calculi; Z79.899 Other long term (current) drug therapy; Z79.810 Long term (current) use of selective estrogen receptor modulators (SERMs)
CPT/HCPCS: 80048; 80076; 81001; 83690; 84703; 85025; 96374; 99283; J2405; J2470

== ENCOUNTER 2024-06-08 09:47 | Emergency (ER) | payer MEDICAID, OTHER ==
[~2024-06-08] VITALS: Ht 180.3 cm; Wt 111.9 kg
[~2024-06-08 09:47] MED LIST changes: +CARA1TAB6 PO; +DICY20TA3; +MACR100C43; +NYST1POW3 TOP; -NYST1POW9 TOP; +PROM12.56; +PROT1TAB2 PO
[2024-06-08] MEDS ORDERED: IRON65TA2 PO (09:59)
[2024-06-08] MEDS ORDERED: PRENTAB77 PO (09:59)
[2024-06-08] MEDS ORDERED: ASPI81CH33 PO (09:59)
[2024-06-08] MEDS ORDERED: UNIS25TA3 PO (10:00)
[2024-06-08 11:12] LABS: BASO % 0.4 % (0.0-1.0); EOS # 0.1 10^3/uL (0.0-0.5); EOS % 0.6 % (0.0-3.0); HEMATOCRIT 39.6 % (36.0-47.0); HEMOGLOBIN 12.9 g/dl (12.0-15.5); LYMPH # 2.5 10^3/uL (1.5-5.0); LYMPH % 22.2 % (24.0-44.0); MEAN CORPUSCULAR HEMOGLOBIN 27.9 pg (27.0-33.0); MEAN CORPUSCULAR HGB CONC 32.6 g/dl (32.0-36.5); MEAN CORPUSCULAR VOLUME 85.7 fl (80.0-96.0); MONO # 0.7 10^3/uL (0.0-0.8); MONO % 6.3 % (2.0-8.0); NEUTROPHILS # 7.9 10^3/uL (1.5-8.5); PLATELET COUNT, AUTOMATED 288 10^3/uL (150-450); RED BLOOD COUNT 4.62 10^6/uL (4.00-5.40); WHITE BLOOD COUNT 11.3 10^3/uL (4.0-10.0)
[2024-06-08 11:32] LABS: BLOOD UREA NITROGEN 6 MG/DL (9-23); CALCIUM LEVEL 8.6 MG/DL (8.5-10.1); CARBON DIOXIDE LEVEL 25 MMOL/L (20-31); CHLORIDE LEVEL 107 MMOL/L (98-107); CREATININE FOR GFR 0.56 MG/DL (0.55-1.30); GLOMERULAR FILTRATION RATE > 60.0 (>60); GLUCOSE, FASTING 79 MG/DL (60-100); POTASSIUM SERUM 4.8 MMOL/L (3.5-5.1); SODIUM LEVEL 137 MMOL/L (136-145)
[2024-06-08 11:47] LABS: HCG, SERUM QUANTITATIVE 13727.4 MIU/ML (<4.2)
[2024-06-08 14:04] VITALS: BP 129/75; TEMP 97.5; O2SAT 97
== END 2024-06-08 14:07 | disposition home or self-care (01) ==
LOC: M ED 09:47
DX: O44.02 Complete placenta previa NOS or without hemorrhage, second trimester (principal); D17.71 Benign lipomatous neoplasm of kidney; Z88.5 Allergy status to narcotic agent; Z3A.16 16 weeks gestation of pregnancy; Z98.84 Bariatric surgery status; Z87.891 Personal history of nicotine dependence; Z79.82 Long term (current) use of aspirin; Z79.899 Other long term (current) drug therapy

== ENCOUNTER → 2024-07-20 | Outpatient (CLI) | payer MEDICAID, OTHER ==
[~2024-07-20] MED LIST changes: +ASPI81CH33 PO; +IRON65TA2 PO; +PRENTAB77 PO; +UNIS25TA3 PO
== END ==
LOC: M WHC 07:41
PROVIDERS: ATTEND Obstetrics & Gynecology
DX: O44.02 Complete placenta previa NOS or without hemorrhage, second trimester (principal); Z3A.22 22 weeks gestation of pregnancy

== ENCOUNTER → 2024-07-27 | Outpatient (CLI) | payer MEDICAID, OTHER ==
[2024-07-27 14:42] LABS: HEMATOCRIT 37.6 % (36.0-47.0); HEMOGLOBIN 11.9 g/dl (12.0-15.5); MEAN CORPUSCULAR HEMOGLOBIN 27.9 pg (27.0-33.0); MEAN CORPUSCULAR HGB CONC 31.6 g/dl (32.0-36.5); MEAN CORPUSCULAR VOLUME 88.3 fl (80.0-96.0); PLATELET COUNT, AUTOMATED 320 10^3/uL (150-450); RED BLOOD COUNT 4.26 10^6/uL (4.00-5.40); WHITE BLOOD COUNT 15.2 10^3/uL (4.0-10.0)
[2024-07-27 15:06] LABS: URIC ACID 2.9 MG/DL (3.1-7.8)
[2024-07-27 15:09] LABS: LDH LACTATE DEHYDROGENASE 143 U/L (120-246)
[2024-07-27 15:10] LABS: ALT/SGPT 11 U/L (7.0-40); AST/SGOT 9 U/L (<34); BILIRUBIN,TOTAL 0.3 MG/DL (0.3-1.2); CREATININE FOR GFR 0.58 MG/DL (0.55-1.30); GLOMERULAR FILTRATION RATE > 60.0 (>60)
[2024-07-27 15:16] LABS: CREATININE,RANDOM URINE 180.9 MG/DL
== END ==
LOC: M PLALAB 10:46
PROVIDERS: ATTEND Obstetrics & Gynecology
DX: O10.012 Pre-existing essential hypertension complicating pregnancy, second trimester (principal); Z3A.00 Weeks of gestation of pregnancy not specified

== ENCOUNTER 2024-08-12 11:45 | Emergency (ER) | payer MEDICAID, OTHER ==
[~2024-08-12] VITALS: Ht 180.3 cm; Wt 120.4 kg
[2024-08-12] MEDS ORDERED: LABE100T6 PO (11:54)
[2024-08-12 13:12] LABS: BASO # 0.1 10^3/uL (0.0-0.2); BASO % 0.4 % (0.0-1.0); EOS # 0.1 10^3/uL (0.0-0.5); EOS % 0.4 % (0.0-3.0); HEMOGLOBIN 10.9 g/dl (12.0-15.5); LYMPH # 2.1 10^3/uL (1.5-5.0); LYMPH % 14.8 % (24.0-44.0); MEAN CORPUSCULAR HEMOGLOBIN 27.7 pg (27.0-33.0); MEAN CORPUSCULAR HGB CONC 32.1 g/dl (32.0-36.5); MEAN CORPUSCULAR VOLUME 86.5 fl (80.0-96.0); MONO # 0.9 10^3/uL (0.0-0.8); MONO % 6.6 % (2.0-8.0); NEUTROPHILS # 10.9 10^3/uL (1.5-8.5); NEUTROPHILS % 76.9 % (36.0-66.0); PLATELET COUNT, AUTOMATED 303 10^3/uL (150-450); RED BLOOD COUNT 3.93 10^6/uL (4.00-5.40); WHITE BLOOD COUNT 14.2 10^3/uL (4.0-10.0)
[2024-08-12 13:45] LABS: CK-MB VALUE MASS < 1.0 NG/ML (<3.6)
[2024-08-12 13:48] LABS: BLOOD UREA NITROGEN 8 MG/DL (9-23); CALCIUM LEVEL 8.4 MG/DL (8.5-10.1); CARBON DIOXIDE LEVEL 24 MMOL/L (20-31); CHLORIDE LEVEL 109 MMOL/L (98-107); CREATININE FOR GFR 0.53 MG/DL (0.55-1.30); GLOMERULAR FILTRATION RATE > 60.0 (>60); GLUCOSE, FASTING 73 MG/DL (60-100); POTASSIUM SERUM 4.2 MMOL/L (3.5-5.1); SODIUM LEVEL 138 MMOL/L (136-145)
[2024-08-12 13:49] LABS: CPK CREATINE PHOSPHOKINASE 42 U/L (34-145); MB/CK RELATIVE INDEX 2.38 (< OR =4)
[2024-08-12] MEDS ORDERED: ASPI81TA26 PO (13:57)
[2024-08-12] MEDS ORDERED: UNIS25TA3 PO (13:58)
[2024-08-12] MEDS ORDERED: HOME MED LIST COMPLETE! XX SCH (14:00)
[2024-08-12] MEDS: ACETAMINOPHEN 325 MG TAB PO ONE (14:15)
[2024-08-12] MEDS: CALCIUM CARBONATE 500 MG CHEW U/D PO ONE (14:15)
[2024-08-12 14:57] LABS: CK-MB VALUE MASS < 1.0 NG/ML (<3.6)
[2024-08-12 14:58] LABS: CPK CREATINE PHOSPHOKINASE 37 U/L (34-145)
[2024-08-12] MEDS ORDERED: ISOVUE-370 76% 100ML VIAL As Ordered ONE (16:12)
[2024-08-12 17:01] VITALS: BP 138/57; TEMP 98.8; O2SAT 99
== END 2024-08-12 17:15 | disposition home or self-care (01) ==
LOC: M ED 11:45
DX: O26.892 Other specified pregnancy related conditions, second trimester (principal); R07.9 Chest pain, unspecified; O10.012 Pre-existing essential hypertension complicating pregnancy, second trimester; E03.9 Hypothyroidism, unspecified; F41.9 Anxiety disorder, unspecified; Z98.84 Bariatric surgery status; Z87.442 Personal history of urinary calculi; Z79.82 Long term (current) use of aspirin; Z79.899 Other long term (current) drug therapy; Z88.5 Allergy status to narcotic agent; Z3A.25 25 weeks gestation of pregnancy
CPT/HCPCS: 36415; 71275; 80048; 82550; 82553; 84484; 85025; 87486; 87581; 87633; 87798; 93005; 99285; G0463; Q9967

== ENCOUNTER 2024-10-12 14:57 | Outpatient (CLI) | payer MEDICAID, OTHER ==
[~2024-10-12] VITALS: Ht 180.3 cm; Wt 123.4 kg
[~2024-10-12 14:57] MED LIST changes: +ASPI81TA26 PO; +LABE100T6 PO
[2024-10-12] MEDS ORDERED: TUMS500C PO (15:17)
[2024-10-12] MEDS ORDERED: ACET500P3 PO (15:17)
[2024-10-12 15:20] VITALS: BP 115/81; O2SAT 94
[2024-10-12] MEDS ORDERED: HOME MED LIST COMPLETE! XX SCH (15:20)
[2024-10-12 15:21] VITALS: O2SAT 96
[2024-10-12] MEDS ORDERED: LR 1,000 ML IV SCH (15:30)
[2024-10-12] MEDS: LR 1,000 ML IV ONE (16:29)
[2024-10-12 16:33] VITALS: BP 145/88
[2024-10-12] MEDS: ONDANSETRON 4MG 2ML VIAL IV ONE (16:51)
[2024-10-12 17:26] VITALS: BP 187/94
[2024-10-12 17:28] VITALS: BP 133/75
[2024-10-12 17:45] VITALS: BP 133/75
[2024-10-12] MEDS: LABETALOL 100MG TAB PO ONE (17:45)
== END 2024-10-12 17:45 | disposition home or self-care (01) ==
LOC: M LDO 14:57
PROVIDERS: ATTEND Obstetrics & Gynecology
DX: O26.893 Other specified pregnancy related conditions, third trimester (principal); R11.0 Nausea; M54.50 Low back pain, unspecified; O13.3 Gestational [pregnancy-induced] hypertension without significant proteinuria, third trimester; Z3A.34 34 weeks gestation of pregnancy
CPT/HCPCS: 59025; 76816; 76819; 76820; G0463; J2405

== ENCOUNTER → 2024-10-19 | Outpatient (CLI) | payer MEDICAID, OTHER ==
[~2024-10-19] MED LIST changes: +ACET500P3 PO; +TUMS500C PO
[2024-10-19 14:14] LABS: APPEARANCE, URINE HAZY (CLEAR); BACTERIA, URINE AUTO NEGATIVE (NEGATIVE); BILIRUBIN, URINE AUTO NEGATIVE (NEGATIVE); BLOOD, URINE BLOOD NEGATIVE (NEGATIVE); COLOR, URINE YELLOW (YELLOW); GLUCOSE, URINE (UA) AUTO NEGATIVE (NEGATIVE); KETONE, URINE AUTO NEGATIVE (NEGATIVE); LEUKOCYTE ESTERASE, URINE AUTO 2+ (NEGATIVE); MUCUS, URINE SMALL (NEGATIVE); NITRITE, URINE AUTO NEGATIVE (NEGATIVE); PROTEIN, URINE AUTO 1+ mg/dL (NEGATIVE); RBC, URINE AUTO 2 /HPF (0-3); SPECIFIC GRAVITY URINE AUTO 1.016 (1.002-1.035); SQUAMOUS EPITHELIAL CELL UR AU 10 /HPF (0-6); WBC, URINE AUTO 3 /HPF (0-3)
[2024-10-19 14:43] LABS: ALBUMIN 2.6 G/DL (3.2-5.2); ALKALINE PHOSPHATASE 120 U/L (35-104); ALT/SGPT 12 U/L (7.0-40); AST/SGOT 9 U/L (<34); BILIRUBIN,TOTAL 0.3 MG/DL (0.3-1.2); BLOOD UREA NITROGEN 5 MG/DL (9-23); CALCIUM LEVEL 8.4 MG/DL (8.5-10.1); CARBON DIOXIDE LEVEL 24 MMOL/L (20-31); CHLORIDE LEVEL 107 MMOL/L (98-107); CREATININE FOR GFR 0.61 MG/DL (0.55-1.30); GLOMERULAR FILTRATION RATE > 60.0 (>60); GLUCOSE, FASTING 73 MG/DL (60-100); POTASSIUM SERUM 4.3 MMOL/L (3.5-5.1); SODIUM LEVEL 139 MMOL/L (136-145); TOTAL PROTEIN 6.7 G/DL (5.7-8.2)
[2024-10-19 14:44] LABS: HEMATOCRIT 33.9 % (36.0-47.0); HEMOGLOBIN 10.1 g/dl (12.0-15.5); MEAN CORPUSCULAR HEMOGLOBIN 23.9 pg (27.0-33.0); MEAN CORPUSCULAR HGB CONC 29.8 g/dl (32.0-36.5); MEAN CORPUSCULAR VOLUME 80.1 fl (80.0-96.0); PLATELET COUNT, AUTOMATED 403 10^3/uL (150-450); RED BLOOD COUNT 4.23 10^6/uL (4.00-5.40); WHITE BLOOD COUNT 14.5 10^3/uL (4.0-10.0)
[2024-10-19 15:01] LABS: TOTAL PROTEIN,RANDOM URINE 38.3 MG/DL (0.0-14.0)
[2024-10-19 15:05] LABS: CREATININE,RANDOM URINE 164.4 MG/DL
== END ==
LOC: M PLALAB 09:40
PROVIDERS: ATTEND Obstetrics & Gynecology
DX: R10.9 Unspecified abdominal pain (principal); Z3A.35 35 weeks gestation of pregnancy; O10.013 Pre-existing essential hypertension complicating pregnancy, third trimester

== ENCOUNTER 2024-10-25 15:17 | Outpatient (CLI) | payer MEDICAID, OTHER ==
[~2024-10-25] VITALS: Ht 180.3 cm; Wt 126.0 kg
[2024-10-25] MEDS ORDERED: ACET-897 PO (15:40)
[2024-10-25] MEDS ORDERED: HOME MED LIST COMPLETE! XX SCH (15:40)
[2024-10-25 15:42] VITALS: BP 161/92
[2024-10-25 15:57] VITALS: BP 144/84
[2024-10-25 16:13] VITALS: BP 137/83
[2024-10-25 16:27] VITALS: BP 136/84
[2024-10-25 16:40] LABS: TOTAL PROTEIN,RANDOM URINE 21.7 MG/DL (0.0-14.0)
[2024-10-25 16:44] VITALS: BP 123/68
[2024-10-25 16:45] LABS: CREATININE,RANDOM URINE 116.5 MG/DL
[2024-10-25 17:14] LABS: HEMOGLOBIN 9.8 g/dl (12.0-15.5); MEAN CORPUSCULAR HEMOGLOBIN 23.8 pg (27.0-33.0); MEAN CORPUSCULAR HGB CONC 29.7 g/dl (32.0-36.5); MEAN CORPUSCULAR VOLUME 80.3 fl (80.0-96.0); PLATELET COUNT, AUTOMATED 283 10^3/uL (150-450); RED BLOOD COUNT 4.11 10^6/uL (4.00-5.40); WHITE BLOOD COUNT 13.7 10^3/uL (4.0-10.0)
[2024-10-25 17:33] LABS: URIC ACID 3.5 MG/DL (3.1-7.8)
[2024-10-25 17:35] LABS: LDH LACTATE DEHYDROGENASE 145 U/L (120-246)
[2024-10-25 17:36] LABS: ALT/SGPT < 9 U/L (7.0-40); AST/SGOT 12 U/L (<34); BILIRUBIN,TOTAL 0.3 MG/DL (0.3-1.2); CREATININE FOR GFR 0.58 MG/DL (0.55-1.30); GLOMERULAR FILTRATION RATE > 60.0 (>60)
[2024-10-25] MEDS ORDERED: METOCLOPRAMIDE 10MG TAB PO ONE (17:50)
[2024-10-25] MEDS ORDERED: diphenhydrAMINE 50MG CAP PO ONE (17:50)
== END 2024-10-25 18:05 | disposition left against medical advice (07) ==
LOC: M LDO 15:17
PROVIDERS: ATTEND Advanced Practice Midwife
DX: O10.013 Pre-existing essential hypertension complicating pregnancy, third trimester (principal); O99.213 Obesity complicating pregnancy, third trimester; O26.893 Other specified pregnancy related conditions, third trimester; O99.843 Bariatric surgery status complicating pregnancy, third trimester; R51.9 Headache, unspecified; M54.50 Low back pain, unspecified; R60.9 Edema, unspecified; E66.9 Obesity, unspecified; Z91.198 Patient's noncompliance with other medical treatment and regimen for other reason; Z79.899 Other long term (current) drug therapy; Z88.5 Allergy status to narcotic agent; Z3A.36 36 weeks gestation of pregnancy
CPT/HCPCS: 36415; 59025; 82247; 82570; 83615; 84156; 84450; 84460; 84550; 85027; G0463

== ENCOUNTER 2024-10-26 14:21 | Inpatient (IN) | payer MEDICAID, OTHER ==
[2024-10-26] VITALS (7 sets, daily range): BP systolic 112–146; BP diastolic 60–87
[~2024-10-26] VITALS: Ht 180.3 cm; Wt 125.9 kg
[~2024-10-26 14:21] MED LIST changes: +ACET-897 PO
[2024-10-26] MEDS ORDERED: HOME MED LIST COMPLETE! XX SCH (14:45)
[2024-10-26] MEDS: diphenhydrAMINE 50MG CAP PO STA (15:33)
[2024-10-26] MEDS: METOCLOPRAMIDE 10MG TAB PO PRN (15:33)
[2024-10-26 17:37] LABS: HEMATOCRIT 35.6 % (36.0-47.0); HEMOGLOBIN 10.7 g/dl (12.0-15.5); MEAN CORPUSCULAR HEMOGLOBIN 23.6 pg (27.0-33.0); MEAN CORPUSCULAR HGB CONC 30.1 g/dl (32.0-36.5); MEAN CORPUSCULAR VOLUME 78.6 fl (80.0-96.0); PLATELET COUNT, AUTOMATED 398 10^3/uL (150-450); RED BLOOD COUNT 4.53 10^6/uL (4.00-5.40); WHITE BLOOD COUNT 14.6 10^3/uL (4.0-10.0)
[2024-10-26 17:56] LABS: TOTAL PROTEIN,RANDOM URINE 25.4 MG/DL (0.0-14.0)
[2024-10-26 18:00] LABS: LDH LACTATE DEHYDROGENASE 182 U/L (120-246)
[2024-10-26 18:01] LABS: CREATININE,RANDOM URINE 129.7 MG/DL
[2024-10-26 18:02] LABS: ALT/SGPT 11 U/L (7.0-40); AST/SGOT 14 U/L (<34); BILIRUBIN,TOTAL 0.7 MG/DL (0.3-1.2); CREATININE FOR GFR 0.53 MG/DL (0.55-1.30); GLOMERULAR FILTRATION RATE > 60.0 (>60)
[2024-10-26] MEDS ORDERED: CARBOPROST TROMETHAMINE 250 MCG/ML AMP IM PRN (18:35)
[2024-10-26] MEDS ORDERED: LIDOCAINE 1% MDV 20ML VIAL INFIL PRN (18:35)
[2024-10-26] MEDS: LACTATED RINGER'S 1000 ML IV STA (20:03)
[2024-10-26] MEDS: OXYTOCIN DRIP 30 UNITS in IV 1 EA IV SCH (20:04)
[2024-10-26] MEDS: PROMETHAZINE 25MG/ML 1ML VIAL IV ONE (21:35)
[2024-10-27] VITALS (51 sets, daily range): BP systolic 80–146; BP diastolic 49–86
[2024-10-27] MEDS: PROMETHAZINE 25MG/ML 1ML VIAL IV ONE (05:10)
[2024-10-27] MEDS: FIORICET TAB PO ONE (08:20)
[2024-10-27] MEDS ORDERED: NALOXONE INJ 0.4MG/1ML VIAL IV PRN ×2 (09:05)
[2024-10-27] MEDS ORDERED: ONDANSETRON 4MG 2ML VIAL IV PRN ×2 (09:05)
[2024-10-27] MEDS ORDERED: LR 500 ML IV PRN ×2 (09:05)
[2024-10-27] MEDS ORDERED: ePHEDrine SULFATE 25 MG/5 ML(5MG/ML) SYRINGE IVP PRN ×2 (09:05)
[2024-10-27] MEDS ORDERED: FENTANYL/ROPIVACAINE/NACL BAG 100 ML EPIDURAL SCH (09:05)
[2024-10-27] MEDS ORDERED: EPIDURAL/PCA KEYS XX PRN ×2 (09:05)
[2024-10-27] MEDS ORDERED: diphenhydrAMINE 50MG/ML VIAL IV PRN ×2 (09:05)
[2024-10-27] MEDS: FENTANYL/ROPIVACAINE/NACL BAG 100 ML EPIDURAL SCH (09:42)
[2024-10-27] MEDS: TRANEXAMIC ACID INJection 1,000 MG in NS 100 ML IV PRN (15:33)
[2024-10-27] MEDS: OXYTOCIN DRIP 30 UNITS in IV 1 EA IV PRN (15:33)
[2024-10-27] MEDS ORDERED: ACETAMINOPHEN 500 MG TAB PO PRN (15:40)
[2024-10-27] MEDS ORDERED: IBUPROFEN 600MG TAB PO PRN (15:40)
[2024-10-27] MEDS ORDERED: RHOGAM 300MCG (1500IU) INJ IM SCH (15:40)
[2024-10-27] MEDS ORDERED: ACETAMINOPHEN 325 MG TAB PO PRN (15:40)
[2024-10-27] MEDS ORDERED: DOCUSATE SODIUM 100MG CAPSULE PO PRN (15:40)
[2024-10-27] MEDS: OXYTOCIN DRIP 30 UNITS in IV 1 EA IV SCH (15:43)
[2024-10-27] MEDS: FIORICET TAB PO PRN (16:17)
[2024-10-27] MEDS: LABETALOL 100MG TAB PO SCH (21:10)
[2024-10-28 02:00] VITALS: BP 126/75; O2SAT 97
[2024-10-28] MEDS: IBUPROFEN 800 MG TAB PO PRN (03:40)
[2024-10-28] MEDS: DIBUCAINE 1% OINTMENT 30GM TOP PRN (05:03)
[2024-10-28 06:00] VITALS: BP 140/74; O2SAT 97
[2024-10-28] MEDS ORDERED: BUTA-198 PO (09:25)
[2024-10-28] MEDS ORDERED: LABE100T6 PO (09:25)
[2024-10-28] MEDS: PRENATAL VITAMINS CHEWABLE TABLET PO SCH (09:29)
[2024-10-28 09:30] VITALS: BP 121/75
[2024-10-29] MEDS ORDERED: MEASLES,MUMPS,RUBELLA VACCINE INJ (MMR-II) SC.IMMUN ONE (09:00)
== END 2024-10-28 11:15 | disposition home or self-care (01) | DRG 560 ==
LOC: M LDO 14:21 → M LDI 17:40 → M OBS 10-27 18:14
PROVIDERS: ADMIT Obstetrics & Gynecology; ATTEND Obstetrics & Gynecology
PROC: 10E0XZZ Delivery of Products of Conception, External Approach (ICD-10-PCS; principal; 2024-10-27)
PROC: 3E0P7VZ Introduction of Hormone into Female Reproductive, Via Natural or Artificial Opening (ICD-10-PCS; 2024-10-27)
PROC: 10907ZC Drainage of Amniotic Fluid, Therapeutic from Products of Conception, Via Natural or Artificial Opening (ICD-10-PCS; 2024-10-27)
PROC: 3E033VJ Introduction of Other Hormone into Peripheral Vein, Percutaneous Approach (ICD-10-PCS; 2024-10-27)
DX: O10.92 Unspecified pre-existing hypertension complicating childbirth (principal); Z37.0 Single live birth; Z3A.36 36 weeks gestation of pregnancy

== ENCOUNTER → 2025-01-19 | Outpatient (REF) | payer OTHER, MEDICAID ==
[~2025-01-19] MED LIST changes: -AMBI10TA PO; +BUTA-198 PO; -MYCO15CR TOP; +NYST15CR12 TOP; +ZOLP-533 PO
[2025-01-19 17:36] LABS: APPEARANCE, URINE MANUAL CLOUDY (CLEAR); BILIRUBIN, URINE MANUAL OBSCURED (NEGATIVE); BLOOD URINE MANUAL OBSCURED (NEGATIVE); COLOR, URINE MANUAL BROWN (YELLOW); GLUCOSE, URINE (UA) MANUAL OBSCURED mg/dL (NEGATIVE); KETONE, URINE MANUAL OBSCURED mg/dL (NEGATIVE); LEUKOCYTE ESTERASE, URINE MAN OBSCURED (NEGATIVE); NITRITE, URINE MANUAL OBSCURED (NEGATIVE); PH,URINE MAN OBSCURED UNITS (5.0 - 7.0); PROTEIN, URINE MANUAL OBSCURED mg/dL (NEGATIVE); SPECIFIC GRAVITY,URINE MANUAL 1.024 (1.002-1.035); UROBILINOGEN, URINE MANUAL OBSCURED mg/dl (NORMAL)
[2025-01-19 17:52] LABS: SQUAMOUS EPITHELIAL CELL URINE LARGE AMOUNT /hpf (SMALL AMT); WBC, URINE TNTC /hpf (0-3)
[2025-01-19 17:53] LABS: BACTERIA, URINE LARGE AMOUNT; MUCUS, URINE LARGE AMOUNT (NEGATIVE)
[2025-01-19 17:54] LABS: HYALINE CAST, URINE NONE SEEN /lpf (0-1)
== END ==
LOC: M LAB REF 17:10
PROVIDERS: ATTEND Physician Assistant
DX: N39.0 Urinary tract infection, site not specified (principal)